=== PATIENT | female | born 1940 | race Caucasian/White ===

== ENCOUNTER 2017-09-29 19:17 | Emergency (ER) | payer MEDICARE, BC ==
[2017-09-29 19:26] VITALS: TEMP 97.4
[2017-09-29] MEDS: SODIUM CHLORIDE 0.9% 1000ML 1,000 ML IV ONE (19:26)
[2017-09-29 19:40] LABS: HEMATOCRIT 36 % (35-47); HEMOGLOBIN 12.7 gm/dl (12.0-15.5); MEAN CORPUSCULAR HEMOGLOBIN 30.6 pg (27.0-32.0); MEAN CORPUSCULAR HGB CONC 35.4 gm/dl (32.0-36.0); MEAN CORPUSCULAR VOLUME 86 fL (81-99)
[2017-09-29 19:45] LABS: ALBUMIN 3.9 gm/dl (3.4-5.0); ALKALINE PHOSPHATASE 59 IU/L (46-116); ALT 19 IU/L (14-63); AST 20 IU/L (15-37); BILIRUBIN,TOTAL 0.8 mg/dl (0.2-1.0); BLOOD UREA NITROGEN 18 mg/dl (7-18); CALCIUM 8.7 mg/dl (8.5-10.1); CARBON DIOXIDE 27.7 mEq/L (21-32); CHLORIDE 98 mMol/L (98-107); CREATININE 1.01 mg/dl (0.60-1.00); GLOM FILT RATE 53 mL/min (>60); GLUCOSE 108 mg/dl (74-106); MAGNESIUM 1.9 mg/dl (1.8-2.4); POTASSIUM 4.1 mMol/L (3.5-5.1); SODIUM 133 mMol/L (136-145); TOTAL PROTEIN 6.9 gm/dl (6.4-8.2); TROP I < 0.017 ng/ml (0.000-0.056)
[2017-09-29 20:02] LABS: BAND NEUTROPHILS % (MANUAL) 3 %; BASOPHILS % (MANUAL) 0 % (0-3); EOSINOPHILS % (MANUAL) 0 % (0-9); LYMPHOCYTES % (MANUAL) 35 % (10-50); MONOCYTES % (MANUAL) 9 % (0-12); NEUTROPHILS % (MANUAL) 53 % (37-80); NORMAL RBCS PRESENT; PLATELET MORPHOLOGY COMMENT ADEQUATE
[2017-09-29 21:46] LABS: APPEARANCE,URINE Clear; BILIRUBIN,URINE NEGATIVE (NEGATIVE); COLOR,URINE Yellow; GLUCOSE, URINE (UA) NEGATIVE (NEGATIVE); KETONES,URINE NEGATIVE (NEGATIVE); LEUKOCYTE ESTERASE ,URINE TRACE (NEGATIVE); NITRATE,URINE NEGATIVE (NEGATIVE); OCCULT BLOOD,URINE NEGATIVE (NEG-TRACE); PH,URINE 7.5; UROBILINOGEN,URINE 0.2 (0.2-1.0 EU)
[2017-09-29 21:58] LABS: BACTERIA NEGATIVE (< 1+); CRYSTALS NEGATIVE (0-3 AVE/HPF); EPITHELIAL CELLS NEGATIVE (SQUAMOUS); RBC,URINE NEG (0-3AV/HPF); WBC,URINE NEG (0-5AV/HPF)
[2017-09-29 23:05] VITALS: BP 136/57; PULSE 62; RESP 15; O2SAT 96
== END 2017-09-29 23:14 | disposition home or self-care (01) | DRG 312 ==
LOC: ED 19:17
DX: R55 Syncope and collapse (principal)
CPT/HCPCS: 36415; 71045; 80053; 81001; 83735; 84484; 85007; 85027; 93005; 96365; 99283; 99285